=== PATIENT | male | born 1990 | race Caucasian/White ===

== ENCOUNTER 2017-11-17 23:28 | Emergency (ER) | payer OTHER ==
[~2017-11-17] VITALS: Ht 170.2 cm; Wt 77.1 kg
[~2017-11-17 23:28] MED LIST: CRUTCH1 EACH MISC; IBUPROFEN600 MG PO; KEFLEX500 MG PO; NORCO 5-325 TA1 EACH PO; SULFAMETHOXAZO1 EAC1 PO
== END 2017-11-18 00:30 | disposition home or self-care (01) ==
LOC: ED 23:28
PROC: 0HQ0XZZ Repair Scalp Skin, External Approach (ICD-10-PCS; principal; 2017-11-17)
DX: S01.01XA Laceration without foreign body of scalp, initial encounter (principal); F17.200 Nicotine dependence, unspecified, uncomplicated; W18.30XA Fall on same level, unspecified, initial encounter
CPT/HCPCS: 12002; 99282